=== PATIENT | female | born 1995 | race African-American/Black ===

== ENCOUNTER 2022-05-25 08:45 | Emergency (ER) | payer OTHER ==
[~2022-05-25] VITALS: Ht 152.4 cm; Wt 78.9 kg
[2022-05-25] MEDS ORDERED: KETOROLAC TROMETHAMINE 30 MG/ML VIAL IM STA (09:01)
[2022-05-25] MEDS ORDERED: METOCLOPRAMIDE HCL 10 MG/2ML VIAL IM ONE (09:15)
[2022-05-25] MEDS ORDERED: DIPHENHYDRAMINE HCL 25 MG CAP PO ONE (09:15)
[2022-05-25 09:32] LABS: CLARITY,URINE CLEAR (CLEAR); COLOR,URINE YELLOW (YELLOW); KETONES,URINE NEGATIVE (NEGATIVE); LEUKOCYTE ESTERASE ,URINE NEGATIVE (NEGATIVE); NITRITE,URINE NEGATIVE (NEGATIVE); PROTEIN,URINE DIPSTICK NEGATIVE (NEGATIVE); URINE UROBILINOGEN 0.2 mg/dL (0.2 - 1)
[2022-05-25 09:53] LABS: BACTERIA,URINE FEW /HPF; EPITHELIAL CELLS,URINE FEW /LPF; WBC,URINE (MAN) 0-5 /HPF (0-5)
== END 2022-05-25 10:25 | disposition home or self-care (01) ==
LOC: ER 08:53
DX: R51.9 Headache, unspecified (principal)
CPT/HCPCS: 81001; 81025; 99284; J1885; J2765

== ENCOUNTER 2022-07-08 22:33 | Emergency (ER) | payer OTHER ==
[~2022-07-08] VITALS: Ht 152.4 cm; Wt 74.8 kg
[2022-07-08] MEDS ORDERED: NAPROSYN500 MG PO (23:51)
[2022-07-08] MEDS ORDERED: MUCINEX DM ER1 EACH PO (23:53)
== END 2022-07-09 00:15 | disposition home or self-care (01) ==
LOC: FSED 22:42
DX: R05.9 Cough, unspecified (principal); J10.1 Influenza due to other identified influenza virus with other respiratory manifestations; B34.9 Viral infection, unspecified; R09.1 Pleurisy
CPT/HCPCS: 83518; 87400; 99283

== ENCOUNTER 2022-10-23 22:14 | Emergency (ER) | payer OTHER ==
[~2022-10-23] VITALS: Ht 165.1 cm; Wt 79.4 kg
[~2022-10-23 22:14] MED LIST: MUCINEX DM ER1 EACH PO; NAPROSYN500 MG PO
[2022-10-23] MEDS ORDERED: CEFDINIR300 MG PO (22:41)
[2022-10-23] MEDS ORDERED: NASACORT16.9 ML (22:41)
[2022-10-23] MEDS ORDERED: LORATADINE10 MG PO (22:41)
[2022-10-23] MEDS ORDERED: THERAFLU FLU &1 EAC1 PO (22:41)
[2022-10-23] MEDS ORDERED: IBUPROFEN200 MG PO (22:47)
[2022-10-23] MEDS ORDERED: TAMIFLU75 MG PO (22:47)
== END 2022-10-23 23:26 | disposition home or self-care (01) ==
LOC: FSED 22:20
DX: R05.9 Cough, unspecified (principal); J10.1 Influenza due to other identified influenza virus with other respiratory manifestations; R09.81 Nasal congestion; R51.9 Headache, unspecified
CPT/HCPCS: 83518; 87400; 99283

== ENCOUNTER 2022-12-02 01:16 | Emergency (ER) | payer OTHER ==
[~2022-12-02] VITALS: Ht 152.4 cm; Wt 77.6 kg
[~2022-12-02 01:16] MED LIST changes: +CEFDINIR300 MG PO; +IBUPROFEN200 MG PO; +LORATADINE10 MG PO; +NASACORT16.9 ML; +TAMIFLU75 MG PO; +THERAFLU FLU &1 EAC1 PO
[2022-12-02] MEDS ORDERED: PREDNISONE20 MG PO (01:57)
[2022-12-02] MEDS ORDERED: BENZONATATE100 MG PO (01:57)
[2022-12-02 02:02] VITALS: BP 103/68
== END 2022-12-02 02:02 | disposition home or self-care (01) ==
LOC: FSED 01:49
DX: R05.9 Cough, unspecified (principal); J06.9 Acute upper respiratory infection, unspecified
CPT/HCPCS: 87400; 99282